=== PATIENT | male | born 1985 | race Caucasian/White ===

== ENCOUNTER → 2016-08-13 | Outpatient (CLI) | payer OTHER ==
--- NOTE | 2016-08-13 15:11 | REP ---
Scrotal sonography: History: Right-sided testalgia. Comparison study. November 03, 2003. Findings: High-resolution bilateral scrotal sonography shows no evidence of intratesticular mass lesion on either side. Testicular Doppler flow is normal bilaterally. Resistive indices are 0.34 on the right and 0.52 on the left. There are two or three scattered microcalcifications in each testis. Right testis measures 4.6 x 2.4 x 2.6 cm. Left testicular dimensions are 4.8 x 2.6 x 2.5 cm. There are cysts in the head of the epididymis on the left, the largest of which measures 4 mm. The patient directed our attention to a palpable area on the right which corresponds to the epididymis in the body region. No abnormality is seen. Impression: No evidence of intratesticular mass lesion. No significant morphologic abnormality. Normal Doppler flow bilaterally. Signed by Dejan Jensen MD 08/13/2016 03:35 P
== END ==
LOC: M RAD 12:28
PROVIDERS: ATTEND Nurse Practitioner Adult Health
DX: N50.811 Right testicular pain (principal)

== ENCOUNTER 2017-05-07 12:27 | Emergency (ER) | payer OTHER ==
[~2017-05-07] VITALS: Ht 185.4 cm; Wt 100.0 kg
[2017-05-07] MEDS ORDERED: NALT1POW23 XX (12:46)
[2017-05-07 13:50] LABS: BASO % 0.4 % (0.0-1.0); EOS % 0.3 % (0.0-3.0); IMMATURE GRANULOCYTE % 0.3 % (0-0); LYMPH # 1.8 10^3/uL (1.5-4.5); MEAN CORPUSCULAR HEMOGLOBIN 32.5 pg (27.0-33.0); MEAN CORPUSCULAR HGB CONC 34.1 g/dl (32.0-36.5); MEAN CORPUSCULAR VOLUME 95.4 fl (80.0-96.0); MONO # 0.7 10^3/uL (0.0-0.8); MONO % 6.9 % (0.0-5.0); NEUTROPHILS % 73.1 % (36.0-66.0); PLATELET COUNT, AUTOMATED 219 10^3/uL (150-450); WHITE BLOOD COUNT 9.5 10^3/uL (4.0-10.0)
[2017-05-07 14:17] LABS: ALBUMIN 4.5 GM/DL (3.2-5.2); ALBUMIN/GLOBULIN RATIO 1.41 (1.00-1.93); ALKALINE PHOSPHATASE 57 U/L (45-117); ALT/SGPT 42 U/L (12-78); ANION GAP 5 MEQ/L (8-16); AST/SGOT 21 U/L (15-37); BILIRUBIN,TOTAL 0.4 MG/DL (0.2-1.0); BLOOD UREA NITROGEN 7 MG/DL (7-18); CALCIUM LEVEL 8.9 MG/DL (8.5-10.1); CARBON DIOXIDE LEVEL 28 MEQ/L (21-32); CHLORIDE LEVEL 109 MEQ/L (98-107); CREATININE FOR GFR 0.95 MG/DL (0.70-1.30); GLOMERULAR FILTRATION RATE > 60.0 (>60); GLUCOSE, FASTING 103 MG/DL (70-105); POTASSIUM SERUM 3.9 MEQ/L (3.5-5.1); SODIUM LEVEL 142 MEQ/L (136-145); TOTAL PROTEIN 7.7 GM/DL (6.4-8.2)
--- NOTE | 2017-05-07 14:40 | REP ---
PA and lateral chest: A comparison is 09/17/2013. There is chronic effacement of the left costophrenic angle, unchanged, likely a pleural adhesion. The right costophrenic angle is unremarkable. The lung navas are clear. Cardiac size is normal. The misty, mediastinum, and bony thorax are. 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 Otherwise, negative PA and lateral chest. Signed by Milo Ruvalcaba MD 05/07/2017 02:31 P
[2017-05-07] MEDS ORDERED: KEFL500C17 PO (14:46)
[2017-05-07 14:54] VITALS: BP 134/88
--- NOTE | 2017-05-07 20:37 | ECGEPIP ---
Stationary ECG Study [facility] - ED Test Date: 2017-05-07 Pat Name: ALICIA ROJO Department: Room: - Gender: M Costumed Character: : 1985 Requested By: Colten Haque Order Number: [id number] Reading MD: Maribel Lawson Measurements Intervals Coy Rate: 83 P: 37 [place]: 152 QRS: 25 QRSD: 93 T: 32 QT: 357 QTc: 421 Interpretive Statements SINUS RHYTHM SIMILAR 09/17/13 Electronically Signed On 05-07-2017 20:37:33 EDT by Maribel Lawson
== END 2017-05-07 15:13 | disposition home or self-care (01) ==
LOC: M ED 12:27
DX: R07.1 Chest pain on breathing (principal); J94.8 Other specified pleural conditions; J32.9 Chronic sinusitis, unspecified; Z88.8 Allergy status to other drugs, medicaments and biological substances; F17.210 Nicotine dependence, cigarettes, uncomplicated

== ENCOUNTER → 2017-08-27 | Outpatient (CLI) | payer OTHER | LOC: M WUC 11:41 | DX: R05 Cough (principal) | CPT/HCPCS: 71046 ==

== ENCOUNTER → 2017-10-28 | Outpatient (CLI) | payer OTHER ==
[2017-10-28 18:39] LABS: HEMATOCRIT 49.2 % (42.0-52.0); HEMOGLOBIN 16.6 g/dl (13.5-17.5); MEAN CORPUSCULAR HGB CONC 33.7 g/dl (32.0-36.5); MEAN CORPUSCULAR VOLUME 91.8 fl (80.0-96.0); PLATELET COUNT, AUTOMATED 287 10^3/uL (150-450); RED BLOOD COUNT 5.36 10^6/uL (4.30-6.10); RED CELL DISTRIBUTION WIDTH 11.9 % (11.5-14.5); WHITE BLOOD COUNT 7.8 10^3/uL (4.0-10.0)
[2017-10-28 18:43] LABS: ALBUMIN/GLOBULIN RATIO 1.61 (1.00-1.93); ALKALINE PHOSPHATASE 64 U/L (45-117); ALT/SGPT 43 U/L (12-78); ANION GAP 8 MEQ/L (8-16); AST/SGOT 15 U/L (7-37); BILIRUBIN,TOTAL 1.1 MG/DL (0.2-1.0); BLOOD UREA NITROGEN 11 MG/DL (7-18); CALCIUM LEVEL 9.2 MG/DL (8.5-10.1); CARBON DIOXIDE LEVEL 26 MEQ/L (21-32); CHLORIDE LEVEL 106 MEQ/L (98-107); CHOLESTEROL LEVEL 167 MG/DL (<200); CHOLESTEROL RISK RATIO 2.609 (<5); CREATININE FOR GFR 0.86 MG/DL (0.70-1.30); GLOMERULAR FILTRATION RATE > 60.0 (>60); GLUCOSE, FASTING 94 MG/DL (70-100); HDL CHOLESTEROL 64 MG/DL (>40); LDL CHOLESTEROL 58.4 MG/DL (<100); NON-HDL-C 103 MG/DL; POTASSIUM SERUM 4.4 MEQ/L (3.5-5.1); SODIUM LEVEL 140 MEQ/L (136-145); TOTAL PROTEIN 8.1 GM/DL (6.4-8.2); TRIGLYCERIDES LEVEL 223 MG/DL (<150)
== END ==
LOC: M WUC 11:10
DX: Z00.00 Encounter for general adult medical examination without abnormal findings (principal)
CPT/HCPCS: 84443

== ENCOUNTER 2017-11-21 11:39 | Emergency (ER) | payer OTHER ==
[2017-11-21] MEDS: FAMOTIDINE 20 MG TAB PO (12:52)
[2017-11-21] MEDS: methylPREDNISolone INJ 125 MG/2 ML VIAL (J2930) IM (12:52)
== END 2017-11-21 13:32 | disposition home or self-care (01) ==
LOC: M ED 11:39
DX: J02.9 Acute pharyngitis, unspecified (principal); T36.95XA Adverse effect of unspecified systemic antibiotic, initial encounter; Y92.89 Other specified places as the place of occurrence of the external cause
CPT/HCPCS: J2930

== ENCOUNTER 2018-03-18 12:46 | Emergency (ER) | payer OTHER ==
[2018-03-18] MEDS: predniSONE 20 MG TAB PO (13:54)
== END 2018-03-18 15:19 | disposition home or self-care (01) ==
LOC: M ED 12:46
DX: R07.89 Other chest pain (principal); R91.8 Other nonspecific abnormal finding of lung field; J94.8 Other specified pleural conditions; Z87.891 Personal history of nicotine dependence; Z79.899 Other long term (current) drug therapy
CPT/HCPCS: 71046

== ENCOUNTER → 2018-07-19 | Outpatient (CLI) | payer OTHER ==
[~2018-07-19] MED LIST: KEFL500C17 PO; NALT1POW23 XX; NAPR-885 PO; OMEP40CA2 PO; PEPC1TAB5 PO; PRED20TA PO
--- NOTE | 2018-07-20 08:41 | REP ---
Clinical: Left shoulder pain . Technique: Internal rotation, external rotation, and Y view. Findings: No acute fracture or dislocation. The acromioclavicular and glenohumeral joints are intact. No periarticular calcifications or degenerative changes are appreciated. Sub acromial space is normal. Surrounding soft tissues are unremarkable. Impression: Normal left shoulder radiographs. Electronically Signed by Hilario Miranda MD 07/20/2018 08:33 A
== END ==
LOC: M RAD 20:24
PROVIDERS: ATTEND Physician Assistant Medical
DX: M25.512 Pain in left shoulder (principal)

== ENCOUNTER → 2023-09-16 | Outpatient (CLI) | payer OTHER ==
[~2023-09-16] MED LIST changes: -OMEP40CA2 PO; +OMEP40CA4 PO
[2023-09-16 17:36] LABS: HEMATOCRIT 49.9 % (42.0-52.0); HEMOGLOBIN 16.7 g/dl (13.5-17.5); MEAN CORPUSCULAR HEMOGLOBIN 32.2 pg (27.0-33.0); MEAN CORPUSCULAR HGB CONC 33.5 g/dl (32.0-36.5); MEAN CORPUSCULAR VOLUME 96.1 fl (80.0-96.0); PLATELET COUNT, AUTOMATED 264 10^3/uL (150-450); RED BLOOD COUNT 5.19 10^6/uL (4.30-6.10); WHITE BLOOD COUNT 7.6 10^3/uL (4.0-10.0)
[2023-09-16 17:55] LABS: ALBUMIN 4.7 G/DL (3.2-5.2); ALKALINE PHOSPHATASE 68 U/L (46-116); ALT/SGPT 52 U/L (7.0-40); AST/SGOT 26 U/L (<34); BILIRUBIN,TOTAL 0.7 MG/DL (0.3-1.2); BLOOD UREA NITROGEN 12 MG/DL (9-23); CALCIUM LEVEL 9.1 MG/DL (8.5-10.1); CARBON DIOXIDE LEVEL 27 MMOL/L (20-31); CHLORIDE LEVEL 109 MMOL/L (98-107); CREATININE FOR GFR 0.84 MG/DL (0.70-1.30); GLOMERULAR FILTRATION RATE > 60.0 (>60); GLUCOSE, FASTING 108 MG/DL (60-100); POTASSIUM SERUM 4.2 MMOL/L (3.5-5.1); SODIUM LEVEL 141 MMOL/L (136-145); TOTAL PROTEIN 7.2 G/DL (5.7-8.2)
[2023-09-16 17:56] LABS: FERRITIN 48.3 NG/ML (10.5-307.3)
[2023-09-16 18:02] LABS: HEMOGLOBIN A1c 5.6 % (4.0-6.0)
== END ==
LOC: M WUC 11:39
PROVIDERS: ATTEND Nurse Practitioner Adult Health
DX: F31.81 Bipolar II disorder (principal); R53.83 Other fatigue

== ENCOUNTER → 2024-02-13 | Outpatient (CLI) | payer OTHER | LOC: M SOG 07:55 | PROVIDERS: ATTEND Physician Assistant | DX: M79.645 Pain in left finger(s) (principal) ==

== ENCOUNTER → 2024-12-09 | Outpatient (CLI) | payer OTHER | LOC: M RAD 10:30 | PROVIDERS: ATTEND Nurse Practitioner Adult Health | DX: R22.1 Localized swelling, mass and lump, neck (principal) ==

== ENCOUNTER → 2025-04-13 | Outpatient (CLI) | payer OTHER ==
[2025-04-13 15:41] LABS: PLATELET COUNT, AUTOMATED 280 10^3/uL (150-450)
[2025-04-13 16:16] LABS: FREE T4 1.07 NG/DL (0.89-1.76)
[2025-04-13 16:19] LABS: ALT/SGPT 47 U/L (7.0-40); AST/SGOT 27 U/L (<34); CALCIUM LEVEL 9.5 MG/DL (8.5-10.1); CARBON DIOXIDE LEVEL 25 MMOL/L (20-31); CHLORIDE LEVEL 105 MMOL/L (98-107); CHOLESTEROL LEVEL 142 MG/DL (<200); CHOLESTEROL RISK RATIO 2.07 (<5); CREATININE FOR GFR 0.89 MG/DL (0.70-1.30); GLOMERULAR FILTRATION RATE > 90.0 (>60); LDL CHOLESTEROL 49.9 MG/DL (<100); NON-HDL-C 73.5 MG/DL; POTASSIUM SERUM 4.0 MMOL/L (3.5-5.1); SODIUM LEVEL 140 MMOL/L (136-145); TRIGLYCERIDES LEVEL 118 MG/DL (<150)
== END ==
LOC: M WUC 10:53
PROVIDERS: ATTEND Nurse Practitioner Adult Health
DX: Z00.00 Encounter for general adult medical examination without abnormal findings (principal); F31.81 Bipolar II disorder

== ENCOUNTER → 2025-04-27 | Outpatient (CLI) | payer OTHER | LOC: M RAD 11:51 | PROVIDERS: ATTEND Otolaryngology | DX: R22.1 Localized swelling, mass and lump, neck (principal) ==